=== PATIENT | male | born 1965 | race African-American/Black ===

== ENCOUNTER 2018-03-27 11:44 | Inpatient (IN) | payer OTHER ==
[~2018-03-27] VITALS: Ht 177.8 cm; Wt 73.3 kg
[2018-03-27 12:28] LABS: HEMATOCRIT 29.9 % (38.0-50.0); HEMOGLOBIN 10.1 G/DL (12.5-16.6); MCH 23.3 PG (29.0-34.0); MCHC 33.8 G/DL (30.0-36.0); MCV 69.1 FL (86-99); PLATELET COUNT 170 K/uL (156-360); RBC DIS.WIDTH-CV 21.2 % (11.8-14.6); RBC DIS.WIDTH-SD 52.1 % (39-53); RED BLOOD COUNT 4.33 M/uL (4.00-5.50); WHITE BLOOD COUNT 5.5 K/uL (4.1-10.2)
[2018-03-27 12:46] LABS: TROP-I INTERPRETATION NEGATIVE; TROPONIN-I 0.04 ng/mL (0.0-0.30)
[2018-03-27 12:52] LABS: CHLORIDE 93 MEQ/L (99-109); CREATININE 4.3 MG/DL (0.6-1.3); GFR ESTIMATE (CALCULATED) 19 mL/min/ (58.99-99999); GLUCOSE 126 mg/dL (70-99); POTASSIUM 4.8 MEQ/L (3.7-5.4); SODIUM 126 MEQ/L (136-147); UREA NITROGEN (BUN) 100 mg/dL (9-23)
[2018-03-27 14:18] LABS: ALBUMIN 2.4 G/DL (3.2-4.8); ALKALINE PHOSPHATASE 125 IU/L (3-129); ALT (GPT) 43 IU/L (3-49); AST (GOT) 145 IU/L (2-34); SERUM ETHYL ALCOHOL < 10 mg/dL; TOTAL BILIRUBIN 1.3 MG/DL (0.0-1.0); TOTAL PROTEIN 5.9 G/DL (6.4-8.3)
[2018-03-27 14:58] LABS: BASE EXCESS -8.2 mEq/L (-3 to +3); BICARBONATE 13.8 mEq/L (22-26); CARBOXY HGB 1.5 % (0-5); PCO2 19 mm Hg (35-45); PO2 111 mm Hg (80-100); pH 7.47 (7.35-7.45)
[2018-03-27 15:00] LABS: COMMENTS - BLOOD GASES A+C+; DEVICE RA; SITE LR
[2018-03-27 15:09] LABS: APPEARANCE CLOUDY ((CLEAR)); BILIRUBIN NEGATIVE; BLOOD SMALL; COLOR AMBER ((YELLOW)); GLUCOSE (STRIP) 50; KETONES NEGATIVE; LEUKOCYTES NEGATIVE; NITRITE NEGATIVE; PROTEIN (STRIP) >=500; SPECIFIC GRAVITY 1.019 (1.000-1.030)
[2018-03-27 15:19] LABS: BACTERIA RARE /HPF; EPITHELIAL CELLS 1+ /HPF; MUCUS TRACE /LPF; UCUL ADDED? YES
[2018-03-27 15:31] LABS: URINE OSMOLALITY 329 MOSM/KG (300-1100)
[2018-03-27 15:34] LABS: AMPHETAMINE NEGATIVE (500 ng/mL); BARBITURATES NEGATIVE (200 ng/mL); BENZODIAZEPINES NEGATIVE (150 ng/mL); BUPRENORPHINE NEGATIVE (10 ng/mL); COCAINE NEGATIVE (150 ng/mL); METHADONE NEGATIVE (200 ng/mL); METHAMPHETAMINE NEGATIVE (500 ng/mL); OPIATES (MORPHINE) NEGATIVE (100 ng/mL); OXYCODONE NEGATIVE (100 ng/mL); PHENCYCLIDINE NEGATIVE (25 ng/mL); PROPOXYPHENE NEGATIVE (300 ng/mL); THC CANNABINOIDS NEGATIVE (50 ng/mL); TRICYCLIC ANTIDEPRESSANTS NEGATIVE (300 ng/mL)
[2018-03-27 17:08] VITALS: BP 121/77
[2018-03-27 17:25] LABS: UR CREATININE CONCENTRATION 250.6 MG/DL
[2018-03-27 19:12] LABS: TROP-I INTERPRETATION NEGATIVE; TROPONIN-I 0.06 ng/mL (0.0-0.30)
[2018-03-27 19:27] LABS: C4 COMPLEMENT 41 MG/DL (10-40)
[2018-03-27 19:58] VITALS: BP 124/75
[2018-03-27 20:26] LABS: CHLORIDE 94 MEQ/L (99-109); CREATININE 4.6 MG/DL (0.6-1.3); GFR ESTIMATE (CALCULATED) 17 mL/min/ (58.99-99999); GLUCOSE 106 mg/dL (70-99); SODIUM 128 MEQ/L (136-147); UREA NITROGEN (BUN) 104 mg/dL (9-23)
[2018-03-27 23:50] VITALS: BP 123/77
[2018-03-28 01:11] LABS: TROP-I INTERPRETATION NEGATIVE; TROPONIN-I 0.06 ng/mL (0.0-0.30)
[2018-03-28 03:43] VITALS: BP 129/61
[2018-03-28 06:46] LABS: INTER. NORMALIZED RATIO 1.4
[2018-03-28 06:49] LABS: BASOPHIL (%) 0 % (0-1); EOSINOPHIL (%) 0 % (0-5); HEMATOCRIT 24.7 % (38.0-50.0); HEMOGLOBIN 8.2 G/DL (12.5-16.6); LYMPHOCYTE (%) 3.5 % (15-42); LYMPHOCYTE COUNT 0.2 K/uL (1.0-2.8); MCH 22.8 PG (29.0-34.0); MCHC 33.2 G/DL (30.0-36.0); MCV 68.8 FL (86-99); MONOCYTE (%) 5.8 % (3-12); MONOCYTE COUNT 0.4 K/uL (0-0.8); NEUTROPHIL (%) 88.7 % (45-76); NEUTROPHIL COUNT 5.3 K/uL (1.8-6.4); PLATELET COUNT 171 K/uL (156-360); PTT 35.3 SEC (25-37); RBC DIS.WIDTH-SD 51.4 % (39-53); RED BLOOD COUNT 3.59 M/uL (4.00-5.50)
[2018-03-28 07:45] VITALS: BP 128/83
[2018-03-28 07:51] LABS: ALKALINE PHOSPHATASE 104 IU/L (3-129); ALT (GPT) 36 IU/L (3-49); AST (GOT) 112 IU/L (2-34); CHLORIDE 95 MEQ/L (99-109); CREATINE KINASE 81 IU/L (1-294); GFR ESTIMATE (CALCULATED) 16 mL/min/ (58.99-99999); GLUCOSE 140 mg/dL (70-99); IRON 42 MCG/DL (35-150); MAGNESIUM 2.8 mg/dl (1.3-2.7); PHOSPHORUS 8.1 mg/dL (2.5-4.9); POTASSIUM 4.7 MEQ/L (3.7-5.4); SODIUM 129 MEQ/L (136-147); TOTAL BILIRUBIN 1.3 MG/DL (0.0-1.0); TOTAL PROTEIN 4.9 G/DL (6.4-8.3); URIC ACID 11.3 mg/dL (3.1-9.2)
[2018-03-28 07:52] LABS: UREA NITROGEN (BUN) 115 mg/dL (9-23)
[2018-03-28 08:08] LABS: TRANSFERRIN (TIBC) < 75 mg/dL (215-380); TRANSFERRIN SATUR. 50 % (20-55)
[2018-03-28 08:55] LABS: THYROTROPIN (TSH) 1.5 MIU/L (0.4-5.5)
[2018-03-28 08:57] LABS: CARCINOEMBR.ANTIGEN 1.8 NG/ML
[2018-03-28 09:07] LABS: FERRITIN > 1500 NG/ML (22-322)
[2018-03-28 09:26] LABS: FOLIC ACID (FOLATE) 11.1 NG/ML (5.0-22.0)
[2018-03-28 10:39] LABS: HEPATITIS B SURFACE ANTIGEN Nonreactive; HEPATITIS C ANTIBODY Nonreactive
[2018-03-28 10:40] LABS: ANTI-HEPATITIS A VIRUS (IGM) Nonreactive; ANTI-HEPATITIS B CORE (IGM) Nonreactive
[2018-03-28 10:41] LABS: HIV-1/2 AB/AG COMBO Nonreactive
[2018-03-28 11:00] VITALS: BP 115/80
[2018-03-28 15:15] VITALS: BP 120/81
[2018-03-28 19:29] VITALS: BP 129/78
[2018-03-28 23:07] VITALS: BP 132/92
[2018-03-29 03:29] VITALS: BP 121/78
[2018-03-29 05:59] LABS: HEMATOCRIT 26.3 % (38.0-50.0); HEMOGLOBIN 8.7 G/DL (12.5-16.6); MCH 23.3 PG (29.0-34.0); MCHC 33.1 G/DL (30.0-36.0); MCV 70.3 FL (86-99); NRBC (%) 0.3 /100 WBC (0-0); PLATELET COUNT 161 K/uL (156-360); RBC DIS.WIDTH-CV 21.5 % (11.8-14.6); RBC DIS.WIDTH-SD 52.9 % (39-53); RED BLOOD COUNT 3.74 M/uL (4.00-5.50); WHITE BLOOD COUNT 6.4 K/uL (4.1-10.2)
[2018-03-29 06:36] LABS: ALBUMIN 1.6 G/DL (3.2-4.8); ALT (GPT) 31 IU/L (3-49); AST (GOT) 93 IU/L (2-34); CHLORIDE 98 MEQ/L (99-109); GLUCOSE 113 mg/dL (70-99); POTASSIUM 5.1 MEQ/L (3.7-5.4); SODIUM 132 MEQ/L (136-147); TOTAL BILIRUBIN 1.4 MG/DL (0.0-1.0)
[2018-03-29 06:43] LABS: ALKALINE PHOSPHATASE 141 IU/L (3-129); CREATININE 6.2 MG/DL (0.6-1.3); GFR ESTIMATE (CALCULATED) 12 mL/min/ (58.99-99999); TOTAL PROTEIN 3.9 G/DL (6.4-8.3); UREA NITROGEN (BUN) 137 mg/dL (9-23)
[2018-03-29 06:51] LABS: ANISOCYTOSIS 2+; BAND NEUTROPHILS 24.4 % (0-8.0); BURR CELLS 3+; EOSINOPHIL ABS CT 0; HELMET CELLS 1+; HYPOCHROMASIA 1+; LYMPHOCYTES 1.7 % (15.0-45.0); MACROCYTES 1+; METAMYELOCYTES 1.7 %; MONOCYTES 2.6 % (0-9.0); OVALOCYTES 2+; PLAT.SUFFICIENCY ADEQUATE; POIKILOCYTOSIS 3+; POLYCHROMASIA 1+; SCHISTOCYTES 1+; SEG.NEUTROPHILS 69.6 % (46.0-76.0); SPHEROCYTES 1+
[2018-03-29 07:40] VITALS: BP 118/84
[2018-03-29 11:00] VITALS: BP 102/68
[2018-03-29 15:15] VITALS: BP 109/78
[2018-03-29 19:28] VITALS: BP 113/79
[2018-03-29 21:25] LABS: HEMATOCRIT 30.7 % (38.0-50.0); HEMOGLOBIN 9.9 G/DL (12.5-16.6); MCH 22.6 PG (29.0-34.0); MCHC 32.2 G/DL (30.0-36.0); MCV 70.1 FL (86-99); PLATELET COUNT 186 K/uL (156-360); RBC DIS.WIDTH-SD 52.8 % (39-53); RED BLOOD COUNT 4.38 M/uL (4.00-5.50); WHITE BLOOD COUNT 7.7 K/uL (4.1-10.2)
[2018-03-29 21:35] LABS: TROP-I INTERPRETATION NEGATIVE; TROPONIN-I 0.07 ng/mL (0.0-0.30)
[2018-03-29 21:40] LABS: CHLORIDE 93 MEQ/L (99-109); CREATININE 6.5 MG/DL (0.6-1.3); GFR ESTIMATE (CALCULATED) 12 mL/min/ (58.99-99999); GLUCOSE 126 mg/dL (70-99); SODIUM 126 MEQ/L (136-147)
[2018-03-29 21:46] LABS: UREA NITROGEN (BUN) 139 mg/dL (9-23)
[2018-03-29 23:11] VITALS: BP 101/69
[2018-03-30 03:33] LABS: CHLORIDE 99 mEq/L (99-109); POTASSIUM 5.1 mEq/L (3.7-5.4); SODIUM 128 mEq/L (136-147)
[2018-03-30 03:35] LABS: GLUCOSE 120 mg/dL (70-99)
[2018-03-30 03:39] LABS: CREATININE 6.8 mg/dL (0.6-1.3); GFR ESTIMATE (CALCULATED) 11 mL/min/ (58.99-99999)
[2018-03-30 03:40] LABS: TROP-I INTERPRETATION NEGATIVE; TROPONIN-I 0.17 ng/mL (0.0-0.30)
[2018-03-30 04:00] LABS: UREA NITROGEN (BUN) 133 mg/dL (9-23)
[2018-03-30 04:38] LABS: ABS NEUTROPHIL COUNT 6.9; ANISOCYTOSIS 2+; BAND NEUTROPHILS 12.2 % (0-8.0); BURR CELLS 3+; EOSINOPHIL ABS CT 0; HEMATOCRIT 27.9 % (38.0-50.0); HEMOGLOBIN 9.3 G/DL (12.5-16.6); LYMPHOCYTES 1.7 % (15.0-45.0); MACROCYTES 1+; MCH 23.1 PG (29.0-34.0); MCHC 33.3 G/DL (30.0-36.0); MCV 69.2 FL (86-99); METAMYELOCYTES 0.9 %; MICROCYTOSIS 1+; MONOCYTES 6.1 % (0-9.0); MYELOCYTES 0.9 %; OVALOCYTES 1+; PLAT.SUFFICIENCY DECREASED; POIKILOCYTOSIS 3+; POLYCHROMASIA 1+; RBC DIS.WIDTH-SD 52.5 % (39-53); RED BLOOD COUNT 4.03 M/uL (4.00-5.50); SEG.NEUTROPHILS 78.2 % (46.0-76.0); TARGET CELLS 1+; WHITE BLOOD COUNT 7.6 K/uL (4.1-10.2)
[2018-03-30 04:39] LABS: PLATELET COUNT 143 K/uL (156-360)
[2018-03-30 06:48] LABS: CA 19-9+ 6 U/mL (<34)
[2018-03-30 08:02] VITALS: BP 115/83
[2018-03-30 11:45] VITALS: BP 110/78
[2018-03-30 15:55] LABS: PHOSPHORUS 4.5 mg/dL (2.5-4.9); URIC ACID 5.8 mg/dL (3.1-9.2)
[2018-03-30 16:50] VITALS: BP 110/73
[2018-03-30 19:20] VITALS: BP 121/85
[2018-03-30 23:02] LABS: BASE EXCESS -5.5 mEq/L (-3 to +3); BICARBONATE 17.9 mEq/L (22-26); CARBOXY HGB 1.5 % (0-5); COMMENTS - BLOOD GASES C+; DEVICE RA; PCO2 27 mm Hg (35-45); PO2 87 mm Hg (80-100); SITE LR; pH 7.43 (7.35-7.45)
[2018-03-30 23:07] VITALS: BP 124/85
[2018-03-31] VITALS (8 sets, daily range): BP systolic 90–133; BP diastolic 56–87
[2018-03-31 00:06] LABS: ALBUMIN 2.2 g/dL (3.2-4.8); CHLORIDE 98 mEq/L (99-109); POTASSIUM 4.6 mEq/L (3.7-5.4); SODIUM 132 mEq/L (136-147)
[2018-03-31 00:07] LABS: MAGNESIUM 2.3 mg/dL (1.3-2.7)
[2018-03-31 00:09] LABS: GLUCOSE 102 mg/dL (70-99); TOTAL PROTEIN 3.9 g/dL (6.4-8.3)
[2018-03-31 00:12] LABS: ALKALINE PHOSPHATASE 182 IU/L (3-129); GFR ESTIMATE (CALCULATED) 14 mL/min/ (58.99-99999); PHOSPHORUS 7.2 mg/dL (2.5-4.9)
[2018-03-31 00:13] LABS: UREA NITROGEN (BUN) 99 mg/dL (9-23)
[2018-03-31 00:14] LABS: AST (GOT) 89 IU/L (2-34)
[2018-03-31 00:15] LABS: ALT (GPT) 25 IU/L (3-49)
[2018-03-31 00:19] LABS: CREATININE 5.4 mg/dL (0.6-1.3)
[2018-03-31 06:17] LABS: HEMOGLOBIN 8.5 G/DL (12.5-16.6); INTER. NORMALIZED RATIO 1.4; MCH 23.2 PG (29.0-34.0); MCV 68.3 FL (86-99); RBC DIS.WIDTH-CV 22.3 % (11.8-14.6); RBC DIS.WIDTH-SD 51.9 % (39-53); RED BLOOD COUNT 3.66 M/uL (4.00-5.50); WHITE BLOOD COUNT 4.9 K/uL (4.1-10.2)
[2018-03-31 06:20] LABS: PTT 42.5 SEC (25-37)
[2018-03-31 06:51] LABS: ALBUMIN 1.7 G/DL (3.2-4.8); ALKALINE PHOSPHATASE 145 IU/L (3-129); ALT (GPT) 20 IU/L (3-49); AST (GOT) 70 IU/L (2-34); CHLORIDE 98 MEQ/L (99-109); CREATININE 5.6 MG/DL (0.6-1.3); GFR ESTIMATE (CALCULATED) 14 mL/min/ (58.99-99999); GLUCOSE 95 mg/dL (70-99); POTASSIUM 4.5 MEQ/L (3.7-5.4); SODIUM 131 MEQ/L (136-147); TOTAL PROTEIN 3.5 G/DL (6.4-8.3); UREA NITROGEN (BUN) 95 mg/dL (9-23)
[2018-03-31 06:55] LABS: PLATELET CLUMPS PRESENT - PLATELET COUNT APPEARS ADQ.; PLATELET COUNT UNABLE TO REPORT K/uL (156-360)
[2018-03-31 06:57] LABS: MAGNESIUM 2.3 mg/dl (1.3-2.7); PHOSPHORUS 7.1 mg/dL (2.5-4.9); TOTAL BILIRUBIN 1.8 MG/DL (0.0-1.0)
[2018-03-31 07:55] LABS: ACANTHOCYTES 1+; ANISOCYTOSIS 2+; BURR CELLS 2+; MACROCYTES 1+; OVALOCYTES 2+; PLAT.SUFFICIENCY ADEQUATE; POIKILOCYTOSIS 3+; TEAR DROP CELLS 1+
[2018-03-31 07:56] LABS: ABS NEUTROPHIL COUNT 4.6; BAND NEUTROPHILS 4.4 % (0-8.0); EOSINOPHIL ABS CT 0; LYMPHOCYTES 1.7 % (15.0-45.0); METAMYELOCYTES 2.6 %; MONOCYTES 2.6 % (0-9.0); SEG.NEUTROPHILS 88.7 % (46.0-76.0)
[2018-03-31 11:39] LABS: HEPATITIS B SURFACE ANTIBODY Nonreactive
[2018-03-31 16:07] LABS: GLOMERULAR BASEMENT MEMB ABY+ <1.0 AI (<1.0)
[2018-03-31 21:51] LABS: PCO2 27 mm Hg (35-45); PO2 81 mm Hg (80-100); pH 7.51 (7.35-7.45)
[2018-03-31 21:52] LABS: BASE EXCESS -1.2 mEq/L (-3 to +3); CARBOXY HGB 1.3 % (0-5); METHEMOGLOBIN 1.1 % (0-1.5)
[2018-03-31 21:53] LABS: BICARBONATE 21.5 mEq/L (22-26); COMMENTS - BLOOD GASES A+C+; O2 SATURATION (CALCULATED) 95.4 % (95-99); SITE RR
[2018-03-31 21:54] LABS: Neutrophil Cytoplasmic Aby Negative (Negative)
[2018-03-31 22:06] LABS: HEMATOCRIT 19.5 % (38.0-50.0); MCH 22.7 PG (29.0-34.0); MCHC 32.3 G/DL (30.0-36.0); MCV 70.4 FL (86-99); RBC DIS.WIDTH-CV 22.3 % (11.8-14.6); RBC DIS.WIDTH-SD 54.8 % (39-53); WHITE BLOOD COUNT 4.1 K/uL (4.1-10.2)
[2018-03-31 22:07] LABS: HEMOGLOBIN 6.3 G/DL (12.5-16.6); RED BLOOD COUNT 2.77 M/uL (4.00-5.50)
[2018-03-31 22:24] LABS: ALBUMIN 1.7 G/DL (3.2-4.8); ALKALINE PHOSPHATASE 154 IU/L (3-129); ALT (GPT) 12 IU/L (3-49); AST (GOT) 65 IU/L (2-34); CHLORIDE 98 MEQ/L (99-109); CREATININE 4.7 MG/DL (0.6-1.3); DIRECT BILIRUBIN 1.4 mg/dL (0.0-0.3); GFR ESTIMATE (CALCULATED) 17 mL/min/ (58.99-99999); POTASSIUM 4.5 MEQ/L (3.7-5.4); SODIUM 131 MEQ/L (136-147); TOTAL PROTEIN 3.1 G/DL (6.4-8.3); UREA NITROGEN (BUN) 68 mg/dL (9-23)
[2018-03-31 22:26] LABS: GLUCOSE 271 mg/dL (70-99); TROP-I INTERPRETATION NEGATIVE; TROPONIN-I 0.04 ng/mL (0.0-0.30)
[2018-03-31 22:34] LABS: ABS NEUTROPHIL COUNT 3.9; ANISOCYTOSIS 2+; BAND NEUTROPHILS 4.4 % (0-8.0); BURR CELLS 1+; EOSINOPHIL ABS CT 0; LYMPHOCYTES 2.7 % (15.0-45.0); MICROCYTOSIS 1+; MONOCYTES 2.7 % (0-9.0); NUCLEATED RBC'S 0.9; OVALOCYTES 2+; PLAT.SUFFICIENCY DECREASED; POIKILOCYTOSIS 3+; SCHISTOCYTES 1+; SEG.NEUTROPHILS 90.2 % (46.0-76.0)
[2018-03-31 22:35] LABS: PLATELET COUNT 75 K/uL (156-360)
[2018-03-31 23:14] LABS: ACETAMINOPHEN (TYLENOL) < 10 MCG/ML (10-30)
[2018-04-01] VITALS (18 sets, daily range): BP systolic 87–145; BP diastolic 63–102
[2018-04-01 05:18] LABS: BASOPHIL (%) 0.2 % (0-1); EOSINOPHIL (%) 0 % (0-5); HEMATOCRIT 23.9 % (38.0-50.0); HEMOGLOBIN 8.1 G/DL (12.5-16.6); IMMATURE GRANULOCYTE (%) 4.8 % (0.0-0.7); LYMPHOCYTE (%) 5.6 % (15-42); LYMPHOCYTE COUNT 0.3 K/uL (1.0-2.8); MCHC 33.9 G/DL (30.0-36.0); MCV 73.8 FL (86-99); MONOCYTE (%) 5.6 % (3-12); MONOCYTE COUNT 0.3 K/uL (0-0.8); NEUTROPHIL (%) 83.8 % (45-76); NRBC (%) 0.4 /100 WBC (0-0); RBC DIS.WIDTH-SD 60.5 % (39-53); RED BLOOD COUNT 3.24 M/uL (4.00-5.50); WHITE BLOOD COUNT 4.8 K/uL (4.1-10.2)
[2018-04-01 05:24] LABS: ALBUMIN 2.1 g/dL (3.2-4.8); CHLORIDE 100 mEq/L (99-109); PLATELET COUNT 112 K/uL (156-360); POTASSIUM 4.3 mEq/L (3.7-5.4); SODIUM 134 mEq/L (136-147)
[2018-04-01 05:25] LABS: MAGNESIUM 2.1 mg/dL (1.3-2.7)
[2018-04-01 05:27] LABS: TOTAL PROTEIN 4.1 g/dL (6.4-8.3)
[2018-04-01 05:29] LABS: TOTAL BILIRUBIN 2.2 mg/dL (0.0-1.0)
[2018-04-01 05:30] LABS: ALKALINE PHOSPHATASE 195 IU/L (3-129); PHOSPHORUS 4.8 mg/dL (2.5-4.9)
[2018-04-01 05:31] LABS: CREATININE 5.2 mg/dL (0.6-1.3); GFR ESTIMATE (CALCULATED) 15 mL/min/ (58.99-99999)
[2018-04-01 05:32] LABS: AST (GOT) 84 IU/L (2-34); DIRECT BILIRUBIN 1.8 mg/dL (0.0-0.3); UREA NITROGEN (BUN) 76 mg/dL (9-23)
[2018-04-01 05:33] LABS: ALT (GPT) 18 IU/L (3-49)
[2018-04-01 05:38] LABS: GLUCOSE 120 mg/dL (70-99)
[2018-04-01 05:40] LABS: ALBUMIN 2.1 g/dL (3.2-4.8)
[2018-04-01 05:41] LABS: CHLORIDE 101 mEq/L (99-109); POTASSIUM 4.4 mEq/L (3.7-5.4); SODIUM 135 mEq/L (136-147)
[2018-04-01 05:43] LABS: GLUCOSE 119 mg/dL (70-99); TOTAL PROTEIN 3.5 g/dL (6.4-8.3)
[2018-04-01 05:45] LABS: TOTAL BILIRUBIN 2.3 mg/dL (0.0-1.0)
[2018-04-01 05:46] LABS: ALKALINE PHOSPHATASE 205 IU/L (3-129)
[2018-04-01 05:47] LABS: CREATININE 5.2 mg/dL (0.6-1.3); GFR ESTIMATE (CALCULATED) 15 mL/min/ (58.99-99999)
[2018-04-01 05:48] LABS: AST (GOT) 85 IU/L (2-34); UREA NITROGEN (BUN) 76 mg/dL (9-23)
[2018-04-01 05:50] LABS: ALT (GPT) 19 IU/L (3-49)
[2018-04-01 06:24] LABS: TRIGLYCERIDES 134 MG/DL (Normal: <150)
[2018-04-01 06:27] LABS: PREALBUMIN < 10.0 mg/dL (10-40)
[2018-04-01 11:09] LABS: INTER. NORMALIZED RATIO 1.2
[2018-04-01 11:10] LABS: HEMATOCRIT 26.1 % (38.0-50.0); HEMOGLOBIN 8.7 G/DL (12.5-16.6); MCH 24.6 PG (29.0-34.0); MCHC 33.3 G/DL (30.0-36.0); MCV 73.7 FL (86-99); RBC DIS.WIDTH-CV 22.2 % (11.8-14.6); RBC DIS.WIDTH-SD 58.4 % (39-53); RED BLOOD COUNT 3.54 M/uL (4.00-5.50); WHITE BLOOD COUNT 5.3 K/uL (4.1-10.2)
[2018-04-01 11:12] LABS: PTT 35.8 SEC (25-37)
[2018-04-01 11:36] LABS: PLAT.SUFFICIENCY DECREASED; PLATELET COUNT 110 K/uL (156-360)
[2018-04-01 15:08] LABS: HEMATOCRIT 26.7 % (38.0-50.0); HEMOGLOBIN 8.8 G/DL (12.5-16.6); MCH 24.6 PG (29.0-34.0); MCV 74.6 FL (86-99); PLATELET COUNT 101 K/uL (156-360); RBC DIS.WIDTH-CV 21.9 % (11.8-14.6); RBC DIS.WIDTH-SD 58.3 % (39-53); RED BLOOD COUNT 3.58 M/uL (4.00-5.50); WHITE BLOOD COUNT 4.9 K/uL (4.1-10.2)
[2018-04-01 19:40] LABS: CHROMOGRANIN A 424 ng/mL (25-140)
[2018-04-02] VITALS (17 sets, daily range): BP systolic 64–153; BP diastolic 56–112
[2018-04-02 05:49] LABS: BASOPHIL (%) 0 % (0-1); EOSINOPHIL (%) 0 % (0-5); HEMATOCRIT 28.3 % (38.0-50.0); HEMOGLOBIN 9.3 G/DL (12.5-16.6); IMMATURE GRANULOCYTE (%) 4.6 % (0.0-0.7); LYMPHOCYTE (%) 5.6 % (15-42); LYMPHOCYTE COUNT 0.3 K/uL (1.0-2.8); MCH 24.5 PG (29.0-34.0); MCHC 32.9 G/DL (30.0-36.0); MCV 74.7 FL (86-99); MONOCYTE (%) 5.3 % (3-12); MONOCYTE COUNT 0.3 K/uL (0-0.8); NEUTROPHIL (%) 84.5 % (45-76); NEUTROPHIL COUNT 4.8 K/uL (1.8-6.4); PLATELET COUNT 96 K/uL (156-360); RBC DIS.WIDTH-CV 22.3 % (11.8-14.6); RBC DIS.WIDTH-SD 58.9 % (39-53); RED BLOOD COUNT 3.79 M/uL (4.00-5.50); WHITE BLOOD COUNT 5.7 K/uL (4.1-10.2)
[2018-04-02 06:01] LABS: ALBUMIN 1.8 G/DL (3.2-4.8); CHLORIDE 103 MEQ/L (99-109); GLUCOSE 122 mg/dL (70-99); MAGNESIUM 2.1 mg/dl (1.3-2.7); POTASSIUM 4.2 MEQ/L (3.7-5.4); SODIUM 137 MEQ/L (136-147); UREA NITROGEN (BUN) 51 mg/dL (9-23)
[2018-04-02 06:04] LABS: ALKALINE PHOSPHATASE 295 IU/L (3-129); ALT (GPT) 25 IU/L (3-49); AST (GOT) 144 IU/L (2-34); CREATININE 4.2 MG/DL (0.6-1.3); GFR ESTIMATE (CALCULATED) 19 mL/min/ (58.99-99999); PHOSPHORUS 4.2 mg/dL (2.5-4.9); TOTAL PROTEIN 3.6 G/DL (6.4-8.3)
[2018-04-02 20:49] LABS: HEMATOCRIT 34.7 % (38.0-50.0); MCV 77.6 FL (86-99)
[2018-04-02 21:16] LABS: C DIFF TOXIN NEGATIVE (NEGATIVE)
[2018-04-03 03:53] VITALS: BP 102/76
[2018-04-03 05:35] LABS: BASOPHIL (%) 0.2 % (0-1); EOSINOPHIL (%) 0 % (0-5); HEMATOCRIT 31.8 % (38.0-50.0); IMMATURE GRANULOCYTE (%) 2.5 % (0.0-0.7); LYMPHOCYTE COUNT 0.4 K/uL (1.0-2.8); MCH 24.2 PG (29.0-34.0); MCHC 31.4 G/DL (30.0-36.0); MCV 76.8 FL (86-99); MONOCYTE (%) 6.9 % (3-12); MONOCYTE COUNT 0.4 K/uL (0-0.8); NEUTROPHIL (%) 84.4 % (45-76); NEUTROPHIL COUNT 5.4 K/uL (1.8-6.4); PLATELET COUNT 86 K/uL (156-360); RBC DIS.WIDTH-CV 22.9 % (11.8-14.6); RBC DIS.WIDTH-SD 62.4 % (39-53); RED BLOOD COUNT 4.14 M/uL (4.00-5.50); WHITE BLOOD COUNT 6.4 K/uL (4.1-10.2)
[2018-04-03 05:58] LABS: ALBUMIN 1.6 G/DL (3.2-4.8); ALT (GPT) 19 IU/L (3-49); AST (GOT) 101 IU/L (2-34); CHLORIDE 106 MEQ/L (99-109); GLUCOSE 144 mg/dL (70-99); MAGNESIUM 2.3 mg/dl (1.3-2.7); PHOSPHORUS 5.5 mg/dL (2.5-4.9); POTASSIUM 4.7 MEQ/L (3.7-5.4); SODIUM 139 MEQ/L (136-147); TOTAL PROTEIN 3.6 G/DL (6.4-8.3); UREA NITROGEN (BUN) 68 mg/dL (9-23)
[2018-04-03 05:59] LABS: ALKALINE PHOSPHATASE 418 IU/L (3-129); CREATININE 5.6 MG/DL (0.6-1.3); GFR ESTIMATE (CALCULATED) 14 mL/min/ (58.99-99999); TOTAL BILIRUBIN 1.2 MG/DL (0.0-1.0)
[2018-04-03 06:38] VITALS: BP 99/69
[2018-04-03 13:42] VITALS: BP 112/78
[2018-04-03 20:10] VITALS: BP 124/80
[2018-04-03 23:04] VITALS: BP 110/79
[2018-04-04 04:45] VITALS: BP 117/85
[2018-04-04 05:34] LABS: BASOPHIL (%) 0 % (0-1); EOSINOPHIL (%) 0 % (0-5); HEMATOCRIT 26.5 % (38.0-50.0); HEMOGLOBIN 8.3 G/DL (12.5-16.6); IMMATURE GRANULOCYTE (%) 1.8 % (0.0-0.7); LYMPHOCYTE (%) 6.9 % (15-42); LYMPHOCYTE COUNT 0.3 K/uL (1.0-2.8); MCH 24.5 PG (29.0-34.0); MCHC 31.3 G/DL (30.0-36.0); MCV 78.2 FL (86-99); MONOCYTE (%) 6.7 % (3-12); MONOCYTE COUNT 0.3 K/uL (0-0.8); NEUTROPHIL (%) 84.6 % (45-76); NEUTROPHIL COUNT 4.1 K/uL (1.8-6.4); RBC DIS.WIDTH-CV 23.4 % (11.8-14.6); RED BLOOD COUNT 3.39 M/uL (4.00-5.50); WHITE BLOOD COUNT 4.9 K/uL (4.1-10.2)
[2018-04-04 06:03] LABS: CHLORIDE 106 MEQ/L (99-109); GFR ESTIMATE (CALCULATED) 19 mL/min/ (58.99-99999); SODIUM 139 MEQ/L (136-147); UREA NITROGEN (BUN) 49 mg/dL (9-23)
[2018-04-04 06:15] LABS: CREATININE 4.3 MG/DL (0.6-1.3); GLUCOSE 107 mg/dL (70-99)
[2018-04-04 06:37] LABS: PLAT.SUFFICIENCY DECREASED; PLATELET COUNT 71 K/uL (156-360)
[2018-04-04 08:00] VITALS: BP 131/89
[2018-04-04 11:30] VITALS: BP 121/84
[2018-04-04 16:45] VITALS: BP 124/87
[2018-04-04 19:30] VITALS: BP 125/89
[2018-04-04 23:22] VITALS: BP 114/83
[2018-04-05 03:00] VITALS: BP 137/90
[2018-04-05 05:52] LABS: BASOPHIL (%) 0 % (0-1); EOSINOPHIL (%) 0 % (0-5); HEMATOCRIT 29.1 % (38.0-50.0); HEMOGLOBIN 9.2 G/DL (12.5-16.6); LYMPHOCYTE COUNT 0.4 K/uL (1.0-2.8); MCH 24.9 PG (29.0-34.0); MCHC 31.6 G/DL (30.0-36.0); MCV 78.6 FL (86-99); MONOCYTE (%) 6.2 % (3-12); MONOCYTE COUNT 0.3 K/uL (0-0.8); NEUTROPHIL (%) 84.8 % (45-76); NEUTROPHIL COUNT 4.1 K/uL (1.8-6.4); RBC DIS.WIDTH-CV 23.8 % (11.8-14.6); RBC DIS.WIDTH-SD 65.4 % (39-53); WHITE BLOOD COUNT 4.9 K/uL (4.1-10.2)
[2018-04-05 06:17] LABS: ALBUMIN 1.8 G/DL (3.2-4.8); CHLORIDE 104 MEQ/L (99-109); GFR ESTIMATE (CALCULATED) 13 mL/min/ (58.99-99999); GLUCOSE 119 mg/dL (70-99); PHOSPHORUS 5.8 mg/dL (2.5-4.9); POTASSIUM 4.5 MEQ/L (3.7-5.4); SODIUM 137 MEQ/L (136-147); UREA NITROGEN (BUN) 65 mg/dL (9-23)
[2018-04-05 06:21] LABS: CREATININE 5.8 MG/DL (0.6-1.3)
[2018-04-05 06:39] LABS: PLAT.SUFFICIENCY DECREASED; PLATELET COUNT 66 K/uL (156-360)
[2018-04-05 07:30] VITALS: BP 141/97
[2018-04-05 11:30] VITALS: BP 135/98
[2018-04-05 17:15] VITALS: BP 124/89
[2018-04-05 19:53] VITALS: BP 135/92
[2018-04-06 00:35] VITALS: BP 120/86
[2018-04-06 03:34] VITALS: BP 123/91
[2018-04-06 06:22] LABS: ALBUMIN 1.7 G/DL (3.2-4.8); ALKALINE PHOSPHATASE 713 IU/L (3-129); ALT (GPT) 37 IU/L (3-49); AST (GOT) 88 IU/L (2-34); CHLORIDE 102 MEQ/L (99-109); CREATININE 6.7 MG/DL (0.6-1.3); GFR ESTIMATE (CALCULATED) 11 mL/min/ (58.99-99999); GLUCOSE 103 mg/dL (70-99); POTASSIUM 5.5 MEQ/L (3.7-5.4); SODIUM 134 MEQ/L (136-147); TOTAL BILIRUBIN 0.7 MG/DL (0.0-1.0); TOTAL PROTEIN 3.8 G/DL (6.4-8.3); UREA NITROGEN (BUN) 79 mg/dL (9-23)
[2018-04-06 06:32] LABS: ALBUMIN 1.7 G/DL (3.2-4.8); CHLORIDE 102 MEQ/L (99-109); GLUCOSE 104 mg/dL (70-99); PHOSPHORUS 7.5 mg/dL (2.5-4.9); SODIUM 136 MEQ/L (136-147); UREA NITROGEN (BUN) 79 mg/dL (9-23)
[2018-04-06 06:36] LABS: CREATININE 6.8 MG/DL (0.6-1.3); GFR ESTIMATE (CALCULATED) 11 mL/min/ (58.99-99999); POTASSIUM 5.5 MEQ/L (3.7-5.4)
[2018-04-06 06:50] LABS: BASOPHIL (%) 0 % (0-1); EOSINOPHIL (%) 0 % (0-5); HEMATOCRIT 27.2 % (38.0-50.0); HEMOGLOBIN 8.6 G/DL (12.5-16.6); LYMPHOCYTE (%) 7.1 % (15-42); LYMPHOCYTE COUNT 0.4 K/uL (1.0-2.8); MCH 24.9 PG (29.0-34.0); MCHC 31.6 G/DL (30.0-36.0); MCV 78.6 FL (86-99); MONOCYTE (%) 7.3 % (3-12); MONOCYTE COUNT 0.4 K/uL (0-0.8); NEUTROPHIL (%) 84.6 % (45-76); NEUTROPHIL COUNT 4.4 K/uL (1.8-6.4); RBC DIS.WIDTH-CV 23.5 % (11.8-14.6); RBC DIS.WIDTH-SD 65.8 % (39-53); RED BLOOD COUNT 3.46 M/uL (4.00-5.50); WHITE BLOOD COUNT 5.2 K/uL (4.1-10.2)
[2018-04-06 07:16] LABS: PLAT.SUFFICIENCY DECREASED; PLATELET COUNT 63 K/uL (156-360)
[2018-04-06 07:22] VITALS: BP 122/90
[2018-04-06 12:20] VITALS: BP 121/86
[2018-04-06 16:20] VITALS: BP 134/88
[2018-04-06 20:47] VITALS: BP 129/84
[2018-04-07 00:06] VITALS: BP 143/88
[2018-04-07 03:39] VITALS: BP 138/85
[2018-04-07 05:26] LABS: BASOPHIL (%) 0 % (0-1); EOSINOPHIL (%) 0 % (0-5); HEMATOCRIT 25.8 % (38.0-50.0); HEMOGLOBIN 8.2 G/DL (12.5-16.6); IMMATURE GRANULOCYTE (%) 1.3 % (0.0-0.7); LYMPHOCYTE (%) 6.5 % (15-42); LYMPHOCYTE COUNT 0.3 K/uL (1.0-2.8); MCHC 31.8 G/DL (30.0-36.0); MCV 78.7 FL (86-99); MONOCYTE (%) 8.4 % (3-12); MONOCYTE COUNT 0.4 K/uL (0-0.8); NEUTROPHIL (%) 83.8 % (45-76); RBC DIS.WIDTH-CV 23.2 % (11.8-14.6); RBC DIS.WIDTH-SD 64.9 % (39-53); RED BLOOD COUNT 3.28 M/uL (4.00-5.50); WHITE BLOOD COUNT 4.8 K/uL (4.1-10.2)
[2018-04-07 05:46] LABS: PLAT.SUFFICIENCY ADEQUATE; PLATELET COUNT 75 K/uL (156-360)
[2018-04-07 05:49] LABS: CHLORIDE 98 MEQ/L (99-109); GFR ESTIMATE (CALCULATED) 16 mL/min/ (58.99-99999); GLUCOSE 91 mg/dL (70-99); POTASSIUM 4.6 MEQ/L (3.7-5.4); SODIUM 134 MEQ/L (136-147); UREA NITROGEN (BUN) 56 mg/dL (9-23)
[2018-04-07 05:53] LABS: ALBUMIN 1.9 G/DL (3.2-4.8); PHOSPHORUS 5.4 mg/dL (2.5-4.9)
[2018-04-07 05:54] LABS: CREATININE 4.9 MG/DL (0.6-1.3)
[2018-04-07 08:06] VITALS: BP 136/90
[2018-04-07 11:42] VITALS: BP 144/92
[2018-04-07 17:05] VITALS: BP 141/82
[2018-04-07] MEDS ORDERED: LIPITOR40 MG PO (19:43)
[2018-04-07] MEDS ORDERED: DIGOX125 MCG PO (19:44)
[2018-04-07] MEDS ORDERED: ALTACE10 MG PO (19:44)
[2018-04-07] MEDS ORDERED: ESCITALOPRAM OX10 MG PO (19:44)
[2018-04-07] MEDS ORDERED: RANITIDINE HCL300 MG PO (19:45)
[2018-04-07] MEDS ORDERED: ADVAIR 250/501 DISK IH (19:45)
[2018-04-07] MEDS ORDERED: SPIRIVA18 MCG IH (19:45)
[2018-04-08] VITALS (7 sets, daily range): BP systolic 115–143; BP diastolic 71–94
[2018-04-08 05:39] LABS: BASOPHIL (%) 0 % (0-1); EOSINOPHIL (%) 0 % (0-5); HEMATOCRIT 24.3 % (38.0-50.0); HEMOGLOBIN 7.8 G/DL (12.5-16.6); IMMATURE GRANULOCYTE (%) 1.1 % (0.0-0.7); LYMPHOCYTE (%) 5.6 % (15-42); LYMPHOCYTE COUNT 0.2 K/uL (1.0-2.8); MCH 24.8 PG (29.0-34.0); MCHC 32.1 G/DL (30.0-36.0); MCV 77.4 FL (86-99); MONOCYTE (%) 8.8 % (3-12); MONOCYTE COUNT 0.3 K/uL (0-0.8); NEUTROPHIL (%) 84.5 % (45-76); NEUTROPHIL COUNT 3.2 K/uL (1.8-6.4); RBC DIS.WIDTH-SD 64.6 % (39-53); RED BLOOD COUNT 3.14 M/uL (4.00-5.50); WHITE BLOOD COUNT 3.8 K/uL (4.1-10.2)
[2018-04-08 06:06] LABS: ANISOCYTOSIS 1+; BURR CELLS 1+; GIANT PLATELETS 2+; HYPOCHROMASIA 1+; MICROCYTOSIS 1+; OVALOCYTES 1+; PLAT.SUFFICIENCY VERY DECREASED; PLATELET COUNT 71 K/uL (156-360); POIKILOCYTOSIS 1+
[2018-04-08 06:07] LABS: CHLORIDE 99 MEQ/L (99-109); CREATININE 6.1 MG/DL (0.6-1.3); GFR ESTIMATE (CALCULATED) 12 mL/min/ (58.99-99999); GLUCOSE 95 mg/dL (70-99); SODIUM 133 MEQ/L (136-147); UREA NITROGEN (BUN) 78 mg/dL (9-23)
[2018-04-09] VITALS (10 sets, daily range): BP systolic 93–164; BP diastolic 68–89
[2018-04-09 05:39] LABS: BASOPHIL (%) 0 % (0-1); EOSINOPHIL (%) 0 % (0-5); HEMATOCRIT 30.3 % (38.0-50.0); HEMOGLOBIN 9.7 G/DL (12.5-16.6); IMMATURE GRANULOCYTE (%) 1.4 % (0.0-0.7); LYMPHOCYTE (%) 5.7 % (15-42); LYMPHOCYTE COUNT 0.2 K/uL (1.0-2.8); MCH 25.1 PG (29.0-34.0); MCV 78.3 FL (86-99); MONOCYTE (%) 9.5 % (3-12); MONOCYTE COUNT 0.3 K/uL (0-0.8); NEUTROPHIL (%) 83.4 % (45-76); NEUTROPHIL COUNT 2.4 K/uL (1.8-6.4); RBC DIS.WIDTH-CV 22.8 % (11.8-14.6); RBC DIS.WIDTH-SD 64.4 % (39-53); WHITE BLOOD COUNT 2.8 K/uL (4.1-10.2)
[2018-04-09 05:40] LABS: RED BLOOD COUNT 3.87 M/uL (4.00-5.50)
[2018-04-09 06:26] LABS: CHLORIDE 98 MEQ/L (99-109); GFR ESTIMATE (CALCULATED) 17 mL/min/ (58.99-99999); GLUCOSE 86 mg/dL (70-99); POTASSIUM 4.2 MEQ/L (3.7-5.4); SODIUM 134 MEQ/L (136-147); UREA NITROGEN (BUN) 58 mg/dL (9-23)
[2018-04-09 06:27] LABS: CREATININE 4.7 MG/DL (0.6-1.3)
[2018-04-09 06:29] LABS: PLATELET COUNT 81 K/uL (156-360)
[2018-04-09 17:46] LABS: TROP-I INTERPRETATION NEGATIVE; TROPONIN-I 0.04 ng/mL (0.0-0.30)
[2018-04-09 21:46] LABS: CHLORIDE 99 MEQ/L (99-109); CREATININE 5.1 MG/DL (0.6-1.3); GFR ESTIMATE (CALCULATED) 15 mL/min/ (58.99-99999); GLUCOSE 94 mg/dL (70-99); POTASSIUM 4.5 MEQ/L (3.7-5.4); SODIUM 134 MEQ/L (136-147); UREA NITROGEN (BUN) 72 mg/dL (9-23)
[2018-04-09 21:47] LABS: TROP-I INTERPRETATION NEGATIVE; TROPONIN-I 0.04 ng/mL (0.0-0.30)
[2018-04-09 21:54] LABS: ALBUMIN 1.8 G/DL (3.2-4.8); ALKALINE PHOSPHATASE 840 IU/L (3-129); ALT (GPT) 49 IU/L (3-49); AST (GOT) 104 IU/L (2-34); MAGNESIUM 2.1 mg/dl (1.3-2.7); PHOSPHORUS 5.8 mg/dL (2.5-4.9); TOTAL PROTEIN 3.7 G/DL (6.4-8.3)
[2018-04-09 21:55] LABS: INTER. NORMALIZED RATIO 1.2
[2018-04-09 21:58] LABS: PTT 34.1 SEC (25-37)
[2018-04-09 22:15] LABS: TOTAL BILIRUBIN 1.4 MG/DL (0.0-1.0)
[2018-04-09 22:22] LABS: ABS NEUTROPHIL COUNT 2.3; ANISOCYTOSIS 2+; EOSINOPHIL ABS CT 0; HEMATOCRIT 29.4 % (38.0-50.0); HEMOGLOBIN 9.3 G/DL (12.5-16.6); LYMPHOCYTES 6.2 % (15.0-45.0); MACROCYTES 1+; MCHC 31.6 G/DL (30.0-36.0); METAMYELOCYTES 6.3 %; MICROCYTOSIS 1+; PLAT.SUFFICIENCY VERY DECREASED; POIKILOCYTOSIS 2+; RBC DIS.WIDTH-CV 23.2 % (11.8-14.6); RED BLOOD COUNT 3.72 M/uL (4.00-5.50); SPHEROCYTES 1+; WHITE BLOOD COUNT 2.6 K/uL (4.1-10.2)
[2018-04-09 22:23] LABS: PLATELET COUNT 25 K/uL (156-360); SEG.NEUTROPHILS 62.5 % (46.0-76.0)
[2018-04-10 01:30] LABS: TROP-I INTERPRETATION NEGATIVE; TROPONIN-I 0.05 ng/mL (0.0-0.30)
[2018-04-10 03:44] LABS: BASOPHIL (%) 0 % (0-1); EOSINOPHIL (%) 0 % (0-5); HEMOGLOBIN 8.1 G/DL (12.5-16.6); IMMATURE GRANULOCYTE (%) 1.5 % (0.0-0.7); LYMPHOCYTE (%) 7.7 % (15-42); LYMPHOCYTE COUNT 0.2 K/uL (1.0-2.8); MCH 25.2 PG (29.0-34.0); MCHC 32.4 G/DL (30.0-36.0); MCV 77.6 FL (86-99); MONOCYTE (%) 14.7 % (3-12); MONOCYTE COUNT 0.4 K/uL (0-0.8); NEUTROPHIL (%) 76.1 % (45-76); NEUTROPHIL COUNT 2.1 K/uL (1.8-6.4); RBC DIS.WIDTH-CV 22.5 % (11.8-14.6); RBC DIS.WIDTH-SD 62.8 % (39-53); RED BLOOD COUNT 3.22 M/uL (4.00-5.50); WHITE BLOOD COUNT 2.7 K/uL (4.1-10.2)
[2018-04-10 03:45] LABS: PLATELET COUNT 87 K/uL (156-360)
[2018-04-10 04:00] VITALS: BP 127/88
[2018-04-10 07:02] LABS: TROP-I INTERPRETATION NEGATIVE; TROPONIN-I 0.04 ng/mL (0.0-0.30)
[2018-04-10 07:07] LABS: BASOPHIL (%) 0 % (0-1); EOSINOPHIL (%) 0 % (0-5); HEMATOCRIT 25.5 % (38.0-50.0); HEMOGLOBIN 8.2 G/DL (12.5-16.6); IMMATURE GRANULOCYTE (%) 0.8 % (0.0-0.7); LYMPHOCYTE (%) 7.9 % (15-42); LYMPHOCYTE COUNT 0.2 K/uL (1.0-2.8); MCH 25.1 PG (29.0-34.0); MCHC 32.2 G/DL (30.0-36.0); MONOCYTE (%) 10.3 % (3-12); MONOCYTE COUNT 0.3 K/uL (0-0.8); RBC DIS.WIDTH-CV 22.5 % (11.8-14.6); RBC DIS.WIDTH-SD 63.7 % (39-53); RED BLOOD COUNT 3.27 M/uL (4.00-5.50); WHITE BLOOD COUNT 2.4 K/uL (4.1-10.2)
[2018-04-10 07:16] LABS: CHLORIDE 100 MEQ/L (99-109); CREATININE 5.7 MG/DL (0.6-1.3); GFR ESTIMATE (CALCULATED) 14 mL/min/ (58.99-99999); GLUCOSE 82 mg/dL (70-99); POTASSIUM 4.2 MEQ/L (3.7-5.4); SODIUM 136 MEQ/L (136-147); UREA NITROGEN (BUN) 74 mg/dL (9-23)
[2018-04-10 07:35] VITALS: BP 119/80
[2018-04-10 07:49] LABS: PLAT.SUFFICIENCY DECREASED; PLATELET COUNT 72 K/uL (156-360)
[2018-04-10 13:20] VITALS: BP 113/89
[2018-04-10 20:16] VITALS: BP 127/79
[2018-04-11] VITALS (14 sets, daily range): BP systolic 80–135; BP diastolic 48–92
[2018-04-11 08:40] LABS: HEMATOCRIT 23.3 % (38.0-50.0); HEMOGLOBIN 7.3 G/DL (12.5-16.6); MCH 24.7 PG (29.0-34.0); MCHC 31.3 G/DL (30.0-36.0); MCV 78.7 FL (86-99); PLATELET COUNT 63 K/uL (156-360); RBC DIS.WIDTH-CV 22.3 % (11.8-14.6); RBC DIS.WIDTH-SD 63.4 % (39-53); RED BLOOD COUNT 2.96 M/uL (4.00-5.50)
[2018-04-11 08:41] LABS: WHITE BLOOD COUNT 1.7 K/uL (4.1-10.2)
[2018-04-11 09:05] LABS: CHLORIDE 100 MEQ/L (99-109); GFR ESTIMATE (CALCULATED) 17 mL/min/ (58.99-99999); GLUCOSE 98 mg/dL (70-99); POTASSIUM 3.6 MEQ/L (3.7-5.4); SODIUM 136 MEQ/L (136-147); UREA NITROGEN (BUN) 56 mg/dL (9-23)
[2018-04-11 09:11] LABS: CREATININE 4.6 MG/DL (0.6-1.3)
[2018-04-12 04:13] VITALS: BP 130/72
[2018-04-12 06:10] LABS: CHLORIDE 100 MEQ/L (99-109); CREATININE 5.2 MG/DL (0.6-1.3); GFR ESTIMATE (CALCULATED) 15 mL/min/ (58.99-99999); GLUCOSE 81 mg/dL (70-99); POTASSIUM 4.3 MEQ/L (3.7-5.4); SODIUM 134 MEQ/L (136-147); UREA NITROGEN (BUN) 72 mg/dL (9-23)
[2018-04-12 06:16] LABS: HEMATOCRIT 30.6 % (38.0-50.0); MCH 24.9 PG (29.0-34.0); MCHC 31.7 G/DL (30.0-36.0); MCV 78.5 FL (86-99); RBC DIS.WIDTH-SD 58.5 % (39-53); WHITE BLOOD COUNT 2.6 K/uL (4.1-10.2)
[2018-04-12 06:23] LABS: HEMOGLOBIN 9.7 G/DL (12.5-16.6)
[2018-04-12 07:20] VITALS: BP 110/62
[2018-04-12 07:27] LABS: PLATELET COUNT 65 K/uL (156-360)
[2018-04-12 12:11] VITALS: BP 95/57
[2018-04-12 17:29] VITALS: BP 112/76
[2018-04-12 19:50] VITALS: BP 120/83
[2018-04-12 23:31] VITALS: BP 121/81
[2018-04-13 03:21] VITALS: BP 137/90
[2018-04-13 07:23] VITALS: BP 127/82
[2018-04-13 08:19] LABS: HEMATOCRIT 30.2 % (38.0-50.0); HEMOGLOBIN 9.7 G/DL (12.5-16.6); MCH 25.1 PG (29.0-34.0); MCHC 32.1 G/DL (30.0-36.0); MCV 78.2 FL (86-99); NRBC (%) 0.7 /100 WBC (0-0); RBC DIS.WIDTH-CV 20.9 % (11.8-14.6); RBC DIS.WIDTH-SD 59.2 % (39-53); RED BLOOD COUNT 3.86 M/uL (4.00-5.50); WHITE BLOOD COUNT 2.8 K/uL (4.1-10.2)
[2018-04-13 08:25] LABS: CHLORIDE 97 MEQ/L (99-109); CREATININE 6.4 MG/DL (0.6-1.3); GFR ESTIMATE (CALCULATED) 12 mL/min/ (58.99-99999); GLUCOSE 96 mg/dL (70-99); POTASSIUM 3.7 MEQ/L (3.7-5.4); SODIUM 133 MEQ/L (136-147); UREA NITROGEN (BUN) 90 mg/dL (9-23); VANCOMYCIN, TROUGH 16.4 MCG/ML (10-20)
[2018-04-13 08:39] LABS: BASOPHIL (%) 0.4 % (0-1); EOSINOPHIL (%) 0 % (0-5); IMMATURE GRANULOCYTE (%) 1.8 % (0.0-0.7); LYMPHOCYTE (%) 10.9 % (15-42); LYMPHOCYTE COUNT 0.3 K/uL (1.0-2.8); MONOCYTE COUNT 0.3 K/uL (0-0.8); NEUTROPHIL (%) 74.9 % (45-76); NEUTROPHIL COUNT 2.1 K/uL (1.8-6.4); PLAT.SUFFICIENCY DECREASED; PLATELET COUNT 67 K/uL (156-360)
[2018-04-13 13:11] VITALS: BP 111/71
[2018-04-13 16:39] VITALS: BP 104/64
[2018-04-13 20:45] VITALS: BP 110/73
[2018-04-13 23:13] VITALS: BP 109/71
[2018-04-14 04:36] VITALS: BP 123/78
[2018-04-14 06:55] VITALS: BP 112/78
[2018-04-14 13:12] VITALS: BP 169/91
[2018-04-14 15:55] VITALS: BP 147/86
[2018-04-14 23:12] VITALS: BP 116/84
[2018-04-15 06:23] LABS: BASOPHIL (%) 0 % (0-1); EOSINOPHIL (%) 0 % (0-5); HEMATOCRIT 32.7 % (38.0-50.0); HEMOGLOBIN 10.3 G/DL (12.5-16.6); LYMPHOCYTE (%) 10.9 % (15-42); LYMPHOCYTE COUNT 0.4 K/uL (1.0-2.8); MCH 24.8 PG (29.0-34.0); MCHC 31.5 G/DL (30.0-36.0); MCV 78.6 FL (86-99); MONOCYTE (%) 13.2 % (3-12); MONOCYTE COUNT 0.5 K/uL (0-0.8); NEUTROPHIL (%) 71.9 % (45-76); NEUTROPHIL COUNT 2.5 K/uL (1.8-6.4); PLATELET COUNT 69 K/uL (156-360); RBC DIS.WIDTH-SD 59.7 % (39-53); RED BLOOD COUNT 4.16 M/uL (4.00-5.50); WHITE BLOOD COUNT 3.5 K/uL (4.1-10.2)
[2018-04-15 06:38] LABS: CHLORIDE 99 MEQ/L (99-109); CREATININE 6.3 MG/DL (0.6-1.3); GFR ESTIMATE (CALCULATED) 12 mL/min/ (58.99-99999); GLUCOSE 88 mg/dL (70-99); SODIUM 136 MEQ/L (136-147); UREA NITROGEN (BUN) 74 mg/dL (9-23)
[2018-04-15 07:26] VITALS: BP 127/85
[2018-04-15 12:05] VITALS: BP 103/72
[2018-04-15 16:39] VITALS: BP 130/78
[2018-04-15 22:42] VITALS: BP 130/65
[2018-04-16 05:29] VITALS: BP 100/64
[2018-04-16 06:39] LABS: CHLORIDE 103 MEQ/L (99-109); GFR ESTIMATE (CALCULATED) 15 mL/min/ (58.99-99999); GLUCOSE 126 mg/dL (70-99); POTASSIUM 3.8 MEQ/L (3.7-5.4); SODIUM 139 MEQ/L (136-147); UREA NITROGEN (BUN) 57 mg/dL (9-23)
[2018-04-16 06:40] LABS: CREATININE 5.2 MG/DL (0.6-1.3)
[2018-04-16 07:23] VITALS: BP 101/72
[2018-04-16 08:21] LABS: HEMATOCRIT 25.4 % (38.0-50.0); HEMOGLOBIN 7.9 G/DL (12.5-16.6); MCH 25.1 PG (29.0-34.0); MCHC 31.1 G/DL (30.0-36.0); MCV 80.6 FL (86-99); PLATELET COUNT 62 K/uL (156-360); RBC DIS.WIDTH-CV 21.1 % (11.8-14.6); RBC DIS.WIDTH-SD 61.5 % (39-53); RED BLOOD COUNT 3.15 M/uL (4.00-5.50)
[2018-04-16 12:02] VITALS: BP 100/74
[2018-04-16 16:47] VITALS: BP 109/76
[2018-04-16 19:35] VITALS: BP 117/77
[2018-04-16 23:34] VITALS: BP 131/84
[2018-04-17] VITALS (8 sets, daily range): BP systolic 81–127; BP diastolic 53–88
[2018-04-17 07:25] LABS: BASOPHIL (%) 0 % (0-1); CHLORIDE 104 MEQ/L (99-109); EOSINOPHIL (%) 0 % (0-5); GFR ESTIMATE (CALCULATED) 12 mL/min/ (58.99-99999); HEMATOCRIT 23.4 % (38.0-50.0); HEMOGLOBIN 7.4 G/DL (12.5-16.6); IMMATURE GRANULOCYTE (%) 4.3 % (0.0-0.7); LYMPHOCYTE (%) 5.7 % (15-42); LYMPHOCYTE COUNT 0.2 K/uL (1.0-2.8); MCH 25.3 PG (29.0-34.0); MCHC 31.6 G/DL (30.0-36.0); MCV 79.9 FL (86-99); MONOCYTE (%) 8.7 % (3-12); MONOCYTE COUNT 0.3 K/uL (0-0.8); NEUTROPHIL (%) 81.3 % (45-76); POTASSIUM 3.8 MEQ/L (3.7-5.4); RBC DIS.WIDTH-SD 60.2 % (39-53); RED BLOOD COUNT 2.93 M/uL (4.00-5.50); SODIUM 139 MEQ/L (136-147); UREA NITROGEN (BUN) 69 mg/dL (9-23); WHITE BLOOD COUNT 3.7 K/uL (4.1-10.2)
[2018-04-17 07:26] LABS: CREATININE 6.2 MG/DL (0.6-1.3); GLUCOSE 79 mg/dL (70-99)
[2018-04-17 07:57] LABS: PLAT.SUFFICIENCY DECREASED; PLATELET COUNT 73 K/uL (156-360)
[2018-04-18] VITALS (7 sets, daily range): BP systolic 98–131; BP diastolic 68–86
[2018-04-18 05:58] LABS: STOOL OCCULT BLD 1ST SPECIMEN NEGATIVE
[2018-04-18 06:55] LABS: BASOPHIL (%) 0.3 % (0-1); EOSINOPHIL (%) 0 % (0-5); HEMATOCRIT 40.3 % (38.0-50.0); HEMOGLOBIN 12.8 G/DL (12.5-16.6); IMMATURE GRANULOCYTE (%) 2.7 % (0.0-0.7); LYMPHOCYTE (%) 13.1 % (15-42); LYMPHOCYTE COUNT 0.8 K/uL (1.0-2.8); MCH 25.7 PG (29.0-34.0); MCHC 31.8 G/DL (30.0-36.0); MCV 80.9 FL (86-99); MONOCYTE (%) 8.1 % (3-12); MONOCYTE COUNT 0.5 K/uL (0-0.8); NEUTROPHIL (%) 75.8 % (45-76); NEUTROPHIL COUNT 4.8 K/uL (1.8-6.4); PLATELET COUNT 79 K/uL (156-360); RBC DIS.WIDTH-CV 19.8 % (11.8-14.6); RBC DIS.WIDTH-SD 57.4 % (39-53); RED BLOOD COUNT 4.98 M/uL (4.00-5.50); WHITE BLOOD COUNT 6.3 K/uL (4.1-10.2)
[2018-04-18 06:58] LABS: HEMATOLOGY COMMENT 1 SN; PLAT.SUFFICIENCY DECREASED
[2018-04-18 07:04] LABS: CHLORIDE 100 MEQ/L (99-109); GFR ESTIMATE (CALCULATED) 18 mL/min/ (58.99-99999); GLUCOSE 82 mg/dL (70-99); POTASSIUM 4.3 MEQ/L (3.7-5.4); SODIUM 136 MEQ/L (136-147); UREA NITROGEN (BUN) 46 mg/dL (9-23)
[2018-04-18 07:06] LABS: CREATININE 4.5 MG/DL (0.6-1.3)
[2018-04-19 03:57] VITALS: BP 96/69
[2018-04-19 07:45] VITALS: BP 108/80
[2018-04-19 11:00] VITALS: BP 109/76
[2018-04-19 15:05] VITALS: BP 114/78
[2018-04-19 19:38] VITALS: BP 119/79
[2018-04-20 00:18] VITALS: BP 95/63
[2018-04-20 03:55] VITALS: BP 95/70
[2018-04-20 06:48] LABS: CHLORIDE 106 MEQ/L (99-109); GFR ESTIMATE (CALCULATED) 11 mL/min/ (58.99-99999); POTASSIUM 4.9 MEQ/L (3.7-5.4); SODIUM 141 MEQ/L (136-147)
[2018-04-20 06:49] LABS: CREATININE 6.7 MG/DL (0.6-1.3); GLUCOSE 126 mg/dL (70-99); UREA NITROGEN (BUN) 86 mg/dL (9-23)
[2018-04-20 08:59] LABS: ALBUMIN 1.6 G/DL (3.2-4.8); PHOSPHORUS 5.2 mg/dL (2.5-4.9)
[2018-04-20 09:07] LABS: BASOPHIL (%) 0.1 % (0-1); EOSINOPHIL (%) 0 % (0-5); HEMATOCRIT 34.4 % (38.0-50.0); IMMATURE GRANULOCYTE (%) 2.9 % (0.0-0.7); LYMPHOCYTE COUNT 0.4 K/uL (1.0-2.8); MCV 81.3 FL (86-99); MONOCYTE (%) 7.6 % (3-12); MONOCYTE COUNT 0.5 K/uL (0-0.8); NEUTROPHIL (%) 83.4 % (45-76); NEUTROPHIL COUNT 5.8 K/uL (1.8-6.4); PLAT.SUFFICIENCY DECREASED; PLATELET CLUMPS PRESENT - PLATELET COUNTS APPEARS DECREASED; RBC DIS.WIDTH-CV 19.9 % (11.8-14.6); RBC DIS.WIDTH-SD 58.5 % (39-53); RED BLOOD COUNT 4.23 M/uL (4.00-5.50)
[2018-04-20 09:08] LABS: PLATELET COUNT UNABLE TO REPORT K/uL (156-360)
[2018-04-20 12:17] VITALS: BP 104/76
[2018-04-20 16:42] VITALS: BP 110/83
[2018-04-20 22:41] VITALS: BP 102/68
[2018-04-21 06:19] LABS: CHLORIDE 102 MEQ/L (99-109); CREATININE 5.1 MG/DL (0.6-1.3); GFR ESTIMATE (CALCULATED) 15 mL/min/ (58.99-99999); GLUCOSE 90 mg/dL (70-99); POTASSIUM 5.1 MEQ/L (3.7-5.4); SODIUM 139 MEQ/L (136-147); UREA NITROGEN (BUN) 58 mg/dL (9-23)
[2018-04-21 06:40] LABS: ABS NEUTROPHIL COUNT 5.9; ANISOCYTOSIS 1+; EOSINOPHIL ABS CT 0; HEMATOCRIT 42.9 % (38.0-50.0); IMM.PLATELET FRACTION 11.6 (1-7); LYMPHOCYTES 1.7 % (15.0-45.0); MACROCYTES 1+; MCH 25.4 PG (29.0-34.0); MONOCYTES 1.8 % (0-9.0); NUCLEATED RBC'S 1.8; PLAT.SUFFICIENCY DECREASED; POIKILOCYTOSIS 1+; RBC DIS.WIDTH-CV 20.1 % (11.8-14.6); RBC DIS.WIDTH-SD 58.9 % (39-53); WHITE BLOOD COUNT 6.1 K/uL (4.1-10.2)
[2018-04-21 06:43] LABS: HEMOGLOBIN 13.3 G/DL (12.5-16.6); PLATELET COUNT 55 K/uL (156-360); RED BLOOD COUNT 5.23 M/uL (4.00-5.50); SEG.NEUTROPHILS 96.5 % (46.0-76.0)
[2018-04-21 07:03] VITALS: BP 101/66
[2018-04-21 22:27] VITALS: BP 100/77
[2018-04-21 22:58] VITALS: BP 106/72
[2018-04-22 06:38] LABS: BASOPHIL (%) 0.3 % (0-1); EOSINOPHIL (%) 0 % (0-5); HEMATOCRIT 36.5 % (38.0-50.0); IMMATURE GRANULOCYTE (%) 2.1 % (0.0-0.7); LYMPHOCYTE (%) 7.6 % (15-42); LYMPHOCYTE COUNT 0.5 K/uL (1.0-2.8); MCH 25.5 PG (29.0-34.0); MCV 82.4 FL (86-99); MONOCYTE (%) 6.4 % (3-12); MONOCYTE COUNT 0.4 K/uL (0-0.8); NEUTROPHIL (%) 83.6 % (45-76); NEUTROPHIL COUNT 5.6 K/uL (1.8-6.4); NRBC (%) 0.3 /100 WBC (0-0); RBC DIS.WIDTH-CV 19.7 % (11.8-14.6); RBC DIS.WIDTH-SD 58.6 % (39-53); RED BLOOD COUNT 4.43 M/uL (4.00-5.50); WHITE BLOOD COUNT 6.7 K/uL (4.1-10.2)
[2018-04-22 06:48] LABS: HEMOGLOBIN 11.3 G/DL (12.5-16.6)
[2018-04-22 07:02] LABS: ALBUMIN 1.8 G/DL (3.2-4.8); ALKALINE PHOSPHATASE 570 IU/L (3-129); ALT (GPT) 22 IU/L (3-49); AST (GOT) 56 IU/L (2-34); CHLORIDE 104 MEQ/L (99-109); GFR ESTIMATE (CALCULATED) 12 mL/min/ (58.99-99999); GLUCOSE 105 mg/dL (70-99); POTASSIUM 5.7 MEQ/L (3.7-5.4); SODIUM 143 MEQ/L (136-147); TOTAL BILIRUBIN 2.1 MG/DL (0.0-1.0); TOTAL PROTEIN 3.7 G/DL (6.4-8.3); UREA NITROGEN (BUN) 83 mg/dL (9-23)
[2018-04-22 07:03] LABS: CREATININE 6.5 MG/DL (0.6-1.3)
[2018-04-22 07:10] VITALS: BP 99/67
[2018-04-22 07:15] LABS: IMM.PLATELET FRACTION 11.5 (1-7); PLATELET COUNT 41 K/uL (156-360)
[2018-04-22 17:30] VITALS: BP 101/71
[2018-04-22 23:39] VITALS: BP 114/83
[2018-04-23] VITALS (12 sets, daily range): BP systolic 74–113; BP diastolic 40–71
[2018-04-23 06:39] LABS: CHLORIDE 103 MEQ/L (99-109); SODIUM 144 MEQ/L (136-147); UREA NITROGEN (BUN) 48 mg/dL (9-23)
[2018-04-23 06:43] LABS: CREATININE 4.4 MG/DL (0.6-1.3); GFR ESTIMATE (CALCULATED) 18 mL/min/ (58.99-99999); GLUCOSE 74 mg/dL (70-99); POTASSIUM 4.4 MEQ/L (3.7-5.4)
[2018-04-23 06:44] LABS: HEMATOCRIT 37.2 % (38.0-50.0); HEMOGLOBIN 11.5 G/DL (12.5-16.6); MCH 25.4 PG (29.0-34.0); MCHC 30.9 G/DL (30.0-36.0); MCV 82.1 FL (86-99); RBC DIS.WIDTH-CV 19.5 % (11.8-14.6); RBC DIS.WIDTH-SD 58.3 % (39-53); RED BLOOD COUNT 4.53 M/uL (4.00-5.50); WHITE BLOOD COUNT 6.6 K/uL (4.1-10.2)
[2018-04-23 07:15] LABS: BASOPHIL (%) 0.2 % (0-1); EOSINOPHIL (%) 0 % (0-5); IMM.PLATELET FRACTION 17.6 (1-7); IMMATURE GRANULOCYTE (%) 2.6 % (0.0-0.7); LYMPHOCYTE COUNT 0.5 K/uL (1.0-2.8); MONOCYTE (%) 5.2 % (3-12); MONOCYTE COUNT 0.3 K/uL (0-0.8); NEUTROPHIL COUNT 5.6 K/uL (1.8-6.4); PLAT.SUFFICIENCY VERY DECREASED
[2018-04-23 07:39] LABS: PLATELET COUNT 19 K/uL (156-360)
[2018-04-23 15:31] LABS: HEMATOCRIT 34.9 % (38.0-50.0); MCHC 31.5 G/DL (30.0-36.0); MCV 82.5 FL (86-99); RBC DIS.WIDTH-CV 19.5 % (11.8-14.6); RBC DIS.WIDTH-SD 58.1 % (39-53); RED BLOOD COUNT 4.23 M/uL (4.00-5.50); WHITE BLOOD COUNT 6.4 K/uL (4.1-10.2)
[2018-04-23 15:52] LABS: BASOPHIL (%) 0.2 % (0-1); EOSINOPHIL (%) 0 % (0-5); IMM.PLATELET FRACTION 20.4 (1-7); LYMPHOCYTE (%) 4.2 % (15-42); LYMPHOCYTE COUNT 0.3 K/uL (1.0-2.8); MONOCYTE COUNT 0.2 K/uL (0-0.8); NEUTROPHIL (%) 90.6 % (45-76); NEUTROPHIL COUNT 5.8 K/uL (1.8-6.4); PLAT.SUFFICIENCY VERY DECREASED
[2018-04-23 15:58] LABS: PLATELET COUNT 12 K/uL (156-360)
[2018-04-23 19:18] LABS: HEMATOCRIT 29.4 % (38.0-50.0); HEMOGLOBIN 9.4 G/DL (12.5-16.6); MCH 26.2 PG (29.0-34.0); MCV 81.9 FL (86-99); RBC DIS.WIDTH-CV 19.3 % (11.8-14.6); RBC DIS.WIDTH-SD 58.2 % (39-53); RED BLOOD COUNT 3.59 M/uL (4.00-5.50)
[2018-04-23 19:49] LABS: IMM.PLATELET FRACTION 15.6 (1-7); PLAT.SUFFICIENCY VERY DECREASED
[2018-04-23 19:50] LABS: PLATELET COUNT 9 K/uL (156-360)
[2018-04-24 03:29] VITALS: BP 107/75
[2018-04-24 06:50] LABS: BASOPHIL (%) 0 % (0-1); EOSINOPHIL (%) 0 % (0-5); HEMATOCRIT 30.7 % (38.0-50.0); HEMOGLOBIN 9.5 G/DL (12.5-16.6); IMMATURE GRANULOCYTE (%) 2.3 % (0.0-0.7); LYMPHOCYTE (%) 5.2 % (15-42); LYMPHOCYTE COUNT 0.3 K/uL (1.0-2.8); MCH 25.5 PG (29.0-34.0); MCHC 30.9 G/DL (30.0-36.0); MCV 82.3 FL (86-99); MONOCYTE (%) 3.9 % (3-12); MONOCYTE COUNT 0.2 K/uL (0-0.8); NEUTROPHIL (%) 88.6 % (45-76); NEUTROPHIL COUNT 5.5 K/uL (1.8-6.4); RBC DIS.WIDTH-CV 19.6 % (11.8-14.6); RBC DIS.WIDTH-SD 58.5 % (39-53); RED BLOOD COUNT 3.73 M/uL (4.00-5.50); WHITE BLOOD COUNT 6.2 K/uL (4.1-10.2)
[2018-04-24 07:02] LABS: ANISOCYTOSIS 1+; HYPOCHROMASIA 1+; IMM.PLATELET FRACTION 9.6 (1-7); MACROCYTES 1+; PLAT.SUFFICIENCY VERY DECREASED; POLYCHROMASIA 1+
[2018-04-24 07:07] LABS: PLATELET COUNT 17 K/uL (156-360)
[2018-04-24 07:11] LABS: CHLORIDE 105 MEQ/L (99-109); GFR ESTIMATE (CALCULATED) 14 mL/min/ (58.99-99999); POTASSIUM 4.1 MEQ/L (3.7-5.4); SODIUM 144 MEQ/L (136-147); UREA NITROGEN (BUN) 69 mg/dL (9-23)
[2018-04-24 07:12] LABS: GLUCOSE 98 mg/dL (70-99)
[2018-04-24 07:13] LABS: CREATININE 5.4 MG/DL (0.6-1.3)
[2018-04-24 07:15] VITALS: BP 117/78
[2018-04-24 12:22] LABS: BASOPHIL (%) 0.3 % (0-1); EOSINOPHIL (%) 0 % (0-5); HEMATOCRIT 40.4 % (38.0-50.0); IMMATURE GRANULOCYTE (%) 1.7 % (0.0-0.7); LYMPHOCYTE (%) 7.5 % (15-42); LYMPHOCYTE COUNT 0.7 K/uL (1.0-2.8); MCH 25.7 PG (29.0-34.0); MCHC 31.2 G/DL (30.0-36.0); MCV 82.3 FL (86-99); MONOCYTE (%) 5.4 % (3-12); MONOCYTE COUNT 0.5 K/uL (0-0.8); NEUTROPHIL (%) 85.1 % (45-76); NEUTROPHIL COUNT 7.5 K/uL (1.8-6.4); NRBC (%) 0.3 /100 WBC (0-0); RBC DIS.WIDTH-SD 59.1 % (39-53); WHITE BLOOD COUNT 8.8 K/uL (4.1-10.2)
[2018-04-24 12:24] LABS: HEMOGLOBIN 12.6 G/DL (12.5-16.6); RED BLOOD COUNT 4.91 M/uL (4.00-5.50)
[2018-04-24 13:11] LABS: IMM.PLATELET FRACTION 12.8 (1-7); PLAT.SUFFICIENCY VERY DECREASED
[2018-04-24 13:17] LABS: PLATELET COUNT 11 K/uL (156-360)
[2018-04-25 08:00] VITALS: BP 110/53
[2018-04-25 18:18] VITALS: BP 00/00
== END 2018-04-25 18:05 | DRG 673 ==
LOC: EME 11:44 → 5EAST 14:04 → 4WEST 14:04 → EDOF 14:04 → ENRESERV 14:05 → 5EAST 16:52 → ENRESERV 03-31 → 5EAST 03-31 21:52 → 4WEST 03-31 23:02 → ENRESERV 03-31 23:04 → 4WEST 03-31 23:09 → ENRESERV 04-02 08:19 → 4EAST 04-02 10:14 → ENRESERV 04-14 10:37 → 5EAST 04-14 12:30
PROVIDERS: Emergency Medicine; Hospitalist; Internal Medicine; Internal Medicine Hematology & Oncology; Internal Medicine Nephrology; Physician Assistant; Specialist; Student in an Organized Health Care Education/Training Program
PROC: 5A1D70Z Performance of Urinary Filtration, Intermittent, Less than 6 Hours Per Day (ICD-10-PCS; principal; 2018-03-30)
PROC: 0JH63XZ Insertion of Tunneled Vascular Access Device into Chest Subcutaneous Tissue and Fascia, Percutaneous Approach (ICD-10-PCS; principal; 2018-03-30)
PROC: 02HV33Z Insertion of Infusion Device into Superior Vena Cava, Percutaneous Approach (ICD-10-PCS; principal; 2018-03-30)
PROC: 0FB03ZX Excision of Liver, Percutaneous Approach, Diagnostic (ICD-10-PCS; 2018-03-31)
PROC: 30233R1 Transfusion of Nonautologous Platelets into Peripheral Vein, Percutaneous Approach (ICD-10-PCS; 2018-04-01)
PROC: 03HY32Z Insertion of Monitoring Device into Upper Artery, Percutaneous Approach (ICD-10-PCS; 2018-04-01)
PROC: 30233N1 Transfusion of Nonautologous Red Blood Cells into Peripheral Vein, Percutaneous Approach (ICD-10-PCS; 2018-04-01)
PROC: 30233K1 Transfusion of Nonautologous Frozen Plasma into Peripheral Vein, Percutaneous Approach (ICD-10-PCS; 2018-04-01)
DX: N17.9 Acute kidney failure, unspecified (principal); C81.99 Hodgkin lymphoma, unspecified, extranodal and solid organ sites; K91.840 Postprocedural hemorrhage of a digestive system organ or structure following a digestive system procedure; Y84.8 Other medical procedures as the cause of abnormal reaction of the patient, or of later complication, without mention of misadventure at the time of the procedure; E87.4 Mixed disorder of acid-base balance; G93.41 Metabolic encephalopathy; I13.2 Hypertensive heart and chronic kidney disease with heart failure and with stage 5 chronic kidney disease, or end stage renal disease; I50.22 Chronic systolic (congestive) heart failure; N18.6 End stage renal disease; N05.2 Unspecified nephritic syndrome with diffuse membranous glomerulonephritis; J18.9 Pneumonia, unspecified organism; D61.818 Other pancytopenia; E83.51 Hypocalcemia; E87.1 Hypo-osmolality and hyponatremia; E87.5 Hyperkalemia; E72.20 Disorder of urea cycle metabolism, unspecified; D62 Acute posthemorrhagic anemia; Z66 Do not resuscitate; Z51.5 Encounter for palliative care; I27.20 Pulmonary hypertension, unspecified; I47.1 Supraventricular tachycardia; E88.89 Other specified metabolic disorders; K72.90 Hepatic failure, unspecified without coma; D63.0 Anemia in neoplastic disease; E16.2 Hypoglycemia, unspecified; I95.9 Hypotension, unspecified; R79.1 Abnormal coagulation profile; E86.0 Dehydration; D63.1 Anemia in chronic kidney disease; R06.6 Hiccough; J98.11 Atelectasis; F05 Delirium due to known physiological condition; I49.3 Ventricular premature depolarization; K21.9 Gastro-esophageal reflux disease without esophagitis; N62 Hypertrophy of breast; R18.8 Other ascites; H26.9 Unspecified cataract; Z91.14 Patient's other noncompliance with medication regimen; Z91.19 Patient's noncompliance with other medical treatment and regimen; Z99.2 Dependence on renal dialysis
CPT/HCPCS: 36600; 70450; 70551; 71045; 71250; 74176; 76770; 77012; 78582; 80048; 80048 91; 80053; 80069; 80074; 80076; 80202; 81003; 82105 90; 82140; 82248; 82272; 82378; 82533 91; 82550; 82570; 82607; 82728; 82746; 82803; 82948; 83036; 83520 90; 83540; 83605; 83735; 83880; 83930; 83935; 84100; 84134; 84146; 84153; 84156; 84300; 84443; 84466; 84478; 84484; 84550; 84630 90; 85014; 85018; 85025; 85025 91; 85027; 85379; 85610; 85730; 86021 90; 86038; 86160; 86162 90; 86301 90; 86316 90; 86706; 86850; 86900; 86901; 86920; 87040; 87086; 87389; 87493; 87641; 88305; 88341 TC; 88342 TC; 92610 GN; 93005; 93306; 94010; 94760; 95819; 97530 GO; 97530 GP; 99202; 99281; 99285; A9540; A9567; C1753; C1788; C9113; G0480; J0153; J0690; J0696; J1100; J1644; J1756; J1815; J1940; J2060; J2250; J2270; J2405; J2543; J3010; J3230; J3370; J3430; J7030; J7040; J7042; J7050; P9016; P9017; P9035; P9037; P9047; Q0161; S0028